=== PATIENT | male | born 1985 | race Caucasian/White ===

== ENCOUNTER 2019-07-16 22:41 | Emergency (ER) | payer MEDICAID ==
[~2019-07-16] VITALS: Ht 172.7 cm; Wt 72.7 kg
[~2019-07-16 22:41] MED LIST: NICO-668 BC; NICO-687 TD; SERT50TA10 PO; TRAZ-251 PO
[2019-07-16 23:38] LABS: BASOPHILS % (AUTO) 0.4 % (0-1); EOSINOPHILS # (AUTO) 0.1 X10'3 (0-0.9); EOSINOPHILS % (AUTO) 1.2 % (0-6); HEMATOCRIT 46.8 % (42.0-52.0); HEMOGLOBIN 16.3 g/dl (14.0-17.9); LYMPHOCYTES # (AUTO) 2.1 X10'3 (1.1-4.8); LYMPHOCYTES % (AUTO) 25.1 % (21-51); MEAN CORPUSCULAR HEMOGLOBIN 32.7 PG (27.0-31.0); MEAN CORPUSCULAR HGB CONC 34.7 g/dL (33.0-36.5); MEAN CORPUSCULAR VOLUME 94.1 FL (78-98); MEAN PLATELET VOLUME 7.6 FL (7.4-10.4); MONOCYTES # (AUTO) 0.6 X10'3 (0-0.9); MONOCYTES % (AUTO) 6.9 % (2-12); NEUTROPHILS # (AUTO) 5.5 X10'3 (1.8-7.7); NEUTROPHILS % (AUTO) 66.4 % (42-75); PLATELET COUNT 292 X10'3 (140-440); RED BLOOD COUNT 4.97 X10'6 (4.70-6.10); WHITE BLOOD COUNT 8.4 X10'3 (4.5-11.0)
[2019-07-16 23:43] LABS: CLARITY,URINE CLEAR (Clear); COLOR,URINE YELLOW (Yellow); GLUCOSE, URINE NEGATIVE (Neg); KETONES,URINE NEGATIVE (Neg); LEUKOCYTE ESTERASE ,URINE NEGATIVE (Neg); NITRITES, URINE NEGATIVE (Neg); OCCULT BLOOD,URINE TRACE-INTACT (Neg); PH,URINE 5.5 (4.8-8.0); PROTEIN,URINE 30 mg/dl (Neg); UROBILINOGEN,URINE 0.2 E.U/dL (0.2-1.0)
[2019-07-16 23:48] LABS: UA COLLECTION TYPE CLN CATCH MIDSTREAM
[2019-07-16 23:49] LABS: ALANINE AMINOTRANSFERASE 46 U/L (12-78); ALBUMIN 4.3 G/DL (3.4-5.0); ALKALINE PHOSPHATASE 80 IU/L (46-116); ANION GAP 8 (8-16); ASPARTATE AMINO TRANSFERASE 25 U/L (10-37); BILIRUBIN,TOTAL 0.2 MG/DL (0.1-1.0); BLOOD UREA NITROGEN 5 MG/DL (7-18); BUN/CREATININE RATIO 6.8 (5.4-32.0); CALCIUM 8.8 MG/DL (8.5-10.1); CHLORIDE 104 MMOL/L (99-107); CREATININE 0.73 MG/DL (0.60-1.10); GLUCOSE 109 MG/DL (70-104); POTASSIUM 3.8 MMOL/L (3.5-5.1); SODIUM 142 MMOL/L (135-145); TOTAL CARBON DIOXIDE 29.9 MMOL/L (24-32); TOTAL PROTEIN 8.5 G/DL (6.4-8.2); eGFR > 90 ML/MIN
[2019-07-16 23:52] LABS: BACTERIA,URINE NONE SEEN /HPF (Neg); RBC,URINE NONE SEEN /HPF (0-2); SQUAMOUS EPITHELIAL CELL,UR NONE SEEN /LPF (FEW); WBC,URINE NONE SEEN /HPF (0-4)
[2019-07-16 23:57] LABS: URINE AMPHETAMINE SCREEN NEGATIVE (Neg); URINE BARBITUATE SCREEN NEGATIVE (Neg); URINE BENZODIAZEPINES SCREEN NEGATIVE (Neg); URINE CANNABINOID SCREEN NEGATIVE (Neg); URINE COCAINE SCREEN NEGATIVE (Neg); URINE METHADONE SCREEN NEGATIVE (Neg); URINE OPIATE SCREEN NEGATIVE (Neg); URINE PHENCYCLIDINE SCREEN NEGATIVE (Neg)
[2019-07-16 23:59] LABS: ACETAMINOPHEN < 2.0 UG/ML (10-30)
[2019-07-17] MEDS ORDERED: NICO-687 TOP (00:03)
[2019-07-17] MEDS ORDERED: SERT-153 PO (00:03)
[2019-07-17] MEDS ORDERED: TRAZ-251 PO (00:03)
[2019-07-17] MEDS ORDERED: SERT100T10 PO (00:05)
--- NOTE | 2019-07-17 00:48 | NUR ---
RECEIVED REPORT FROM LOW BLISS. PT CALM AND COOPERATIVE, SLEEPING IN BED ON RIGHT SIDE WITH NO S/S DISTRESS. RESPIRATIONS EVEN AND UNLABORED. WILL CONTINUE TO MONITOR.
--- NOTE | 2019-07-17 01:00 | NUR ---
EDMD PHAM AT BEDSIDE TO ASSESS PT LACERATIONS. ALL SUPPLIES FOR SUTURES AT NURSES STATION WHEN EDMD AVAILABLE FOR SUTURE PLACEMENT
--- NOTE | 2019-07-17 02:00 | NUR ---
pt appears to be asleep in bed on right side. no signs/symptoms/complaints of distress. respirations even and unlabored. will continue to monitor.
--- NOTE | 2019-07-17 03:29 | NUR ---
pt appears to be asleep in bed lying on right side. no signs/symptoms/complaints of distress. respirations even and unlabored. will continue to monitor.
[2019-07-17] MEDS ORDERED: LIDOcaine 1% W/epiNEPHrine 1:200,000 10ml vial IJ ONE (03:45)
[2019-07-17] MEDS ORDERED: TETanus/Pertussis (Acell)/Diphther VAC/PF (Tdap-Adult) 0.5ml syringe IMVAC ONE (03:45)
--- NOTE | 2019-07-17 03:57 | NUR ---
jannet boyd at pt bedside applying sutures to right forearm. afterwards, antibiotic ointment and simple dressing applied per md order. pt denies any pain or questions/concerns/pain at this time. pt now lying with eyes closed on back. will continue to monitor
--- NOTE | 2019-07-17 05:24 | NUR ---
pt packet faxed to [facility]
--- NOTE | 2019-07-17 05:25 | NUR ---
PER EDMD VERO: ACTIVE NURSING ORDER "Daily wound checks and dressing changes to right arm while in the ED." Dressing applied after sutures applied.
--- NOTE | 2019-07-17 07:05 | NUR ---
Patient sitting up in bed at change of shift. States that he "just want[s] to ". "I have nothing to live for, I have felt this way since I was 10, I watched my dad try to commit suicide and we used to do it together", " I am over living". He states that Dr. Mullen said "If you want to kill yourself, then go do it, leave". Patient asked to use the phone and this request was accomodated. No respiratory distress observed. Will continue to monitor.
--- NOTE | 2019-07-17 08:45 | NUR ---
Dr. Choe is at bedside talking to patient. No distress observed.
--- NOTE | 2019-07-17 08:51 | NUR ---
Avery, [facility] is at bedside evaluating patient.
--- NOTE | 2019-07-17 09:26 | NUR ---
Avery [facility], gave ppw on resources in the community for patient.
--- NOTE | 2019-07-17 11:02 | NUR ---
Spoke to Avery [facility], patient is being held on a 5150 for DTS. Patient's girlfriend, Mari, is at bedside. No distress observed.
--- NOTE | 2019-07-17 12:40 | NUR ---
pt is resting in bed. no concerns at this time
--- NOTE | 2019-07-17 14:06 | NUR ---
Patient is resting in bed peacefully on the right side. No distress observed.
--- NOTE | 2019-07-17 18:30 | NUR ---
Received report from Birgit BLISS. Patient is sitting up in his bed asking for his dinner. Patient is informed dinner will be arriving shortly. Patient is cooperative, friendly and interacts appropriately. No signs of distress noted, RR are even and unlabored, will continue to monitor.
[2019-07-17] MEDS: traZODone 50mg tablet PO SCH (20:19)
--- NOTE | 2019-07-17 20:30 | NUR ---
Patient is in bed resting with eyes closed. No distress is noted, RR even and unlabored will continue to monitor.
--- NOTE | 2019-07-18 | NUR ---
Patient resting in bed with eyes closed, RR are even and unlabored, no distress noted at this time. Will continue to monitor.
--- NOTE | 2019-07-18 02:08 | NUR ---
Patient resting in bed with eyes closed, RR are even and unlabored, no distress noted at this time. Will continue to monitor.
--- NOTE | 2019-07-18 04:36 | NUR ---
Patient resting in bed with eyes closed, RR are even and unlabored, no distress noted at this time. Will continue to monitor.
[2019-07-18] MEDS: nicotine 21mg patch - 24 hr TD SCH (08:00)
[2019-07-18] MEDS: sertraline 50mg tablet PO SCH ×2 (08:00→08:50)
--- NOTE | 2019-07-18 09:52 | NUR ---
Pt's dressing was coming off his right forearm. Dressing removed. 3 wounds with sutures intact. Wounds appear to be healing. Pt would like to leave off dressigs so wounds can dry out and heal. GF at bedside.
--- NOTE | 2019-07-18 13:01 | NUR ---
relieving RN for break, pt is resting quietly on bed,
[2019-07-18] MEDS: traZODone 50mg tablet PO SCH (20:03)
[2019-07-19 05:45] VITALS: BP 100/6
--- NOTE | 2019-07-19 06:26 | NUR ---
pt resting calm and quiet in bed.
[2019-07-19] MEDS: sertraline 50mg tablet PO SCH (08:00)
[2019-07-19] MEDS: nicotine 21mg patch - 24 hr TD SCH (08:00)
--- NOTE | 2019-07-19 08:00 | NUR ---
resting quietly in bed.
--- NOTE | 2019-07-19 09:00 | NUR ---
Pt refused his AM Zoloft and Nicotine patch. States Zoloft doesn't do anything for him and pt has quite smoking and doesn't have an urge to smoke therefore not needing the nicotine patch.
[2019-07-19] MEDS ORDERED: LORazepam 1 MG tablet PO ONE (09:45)
--- NOTE | 2019-07-19 10:21 | NUR ---
pt starting to get antsy and agitated. Stating he's wanting to leave and be discharged. Pt states he's feeling stir crazy, he's used to walkign 10mil a day and "can't stand being in this place". Asked pt if he wanted something to help with agitation and he stated he would. Dr. Chow aware of pts agitation and ordered Ativan 1mg. Med given. Called upstairs to and they will accept pt today.
--- NOTE | 2019-07-19 10:36 | NUR ---
primary RN was sent on break. pt resting comfortably on his back, no signs of respiratory distress.
--- NOTE | 2019-07-19 10:51 | NUR ---
s/p Ativan administration pt is feeling more calm and "mellow". pt visually appears to be more calm. Notified pt he is to be transferred upstairs to [facility] at some point today and pt received news well.
--- NOTE | 2019-07-19 11:46 | NUR ---
pt transferred up to [facility]. Calm and cooperative.
== END 2019-07-19 11:49 ==
LOC: ER 22:42
DX: S51.811A Laceration without foreign body of right forearm, initial encounter (principal); T14.91XA Suicide attempt, initial encounter; F10.920 Alcohol use, unspecified with intoxication, uncomplicated; F31.9 Bipolar disorder, unspecified; X78.8XXA Intentional self-harm by other sharp object, initial encounter; Y93.89 Activity, other specified; Y92.89 Other specified places as the place of occurrence of the external cause; Y99.8 Other external cause status; Y90.9 Presence of alcohol in blood, level not specified
CPT/HCPCS: 12004; 36415; 80053; 80305; 80320; 80329; 81001; 84443; 85025; 90471; 90715; 99285

== ENCOUNTER 2019-07-19 10:44 | Inpatient (IN) | payer MEDICAID ==
[~2019-07-19] VITALS: Ht 167.6 cm; Wt 73.8 kg
[~2019-07-19 10:44] MED LIST changes: -NICO-668 BC; -NICO-687 TD; +NICO-687 TOP; +SERT100T10 PO; -SERT50TA10 PO
[2019-07-19] MEDS ORDERED: acetaminophen 325mg tablet PO PRN ×2 (11:05)
[2019-07-19] MEDS ORDERED: magnesium hydroxide 30ml (MOM) UD suspension PO PRN (11:05)
[2019-07-19] MEDS ORDERED: NICOTINE POLACRILEX 2 MG LOZENGE BC PRN (11:05)
[2019-07-19] MEDS ORDERED: mag hydrox/Alum hydrox/simeth 30ml oral suspension PO PRN (11:05)
[2019-07-19] MEDS ORDERED: traZODone 50mg tablet PO PRN (11:05)
[2019-07-19] MEDS ORDERED: hydrOXYzine 25 MG tablet PO PRN (11:05)
[2019-07-19] MEDS ORDERED: loperamide 2mg capsule PO PRN (11:05)
--- NOTE | 2019-07-19 13:22 | NUR ---
Admission note: Pt admitted to [place] [facility] on 5150 at 1140 for DTS. Pt was just discharged from here on Jun 23. Pt arrives with superficial cuts to both arms. Pt is hyperverbal and tangential. Pt denied SI to the county plaster model and mold maker but his girlfriend states he told her he would kill himself as soon as he leaves the ER. Pt planned to cut himself until he "Bled out". Pt has a history of Bipolar and depression. ETOH .16 upon arrival.
[2019-07-19 20:00] VITALS: BP 113/68
[2019-07-19] MEDS: traZODone 50mg tablet PO SCH (20:38)
--- NOTE | 2019-07-20 05:25 | NUR ---
Nursing Progress Note: Legal hold:515 Client on involuntary status for DTS. Report received from nurse Gagandeep RN with use of SBAR. Why are they here: Pt admitted to [place] for [facility] on 515 at 1140 for DTS. Pt was just discharged from here on Jun 23. Pt arrives with superficial cuts to both arms. Pt is hyperverbal and tangential. Pt denied SI to the county hydraulic strainer operator but his girlfriend states he told her he would kill himself as soon as he leaves the ER. Pt planned to cut himself until he "Bled out". Pt has a history of Bipolar and depression. ETOH .16 upon arrival. Assessment What has happened this shift: Patient is watching television and socializing with other patients following shift change. Patient is well oriented and cooperative with staff. This patient sits with this commercial insurance underwriter in the community room. He denies S/I, H/I, or any hallucinations at this time. The patient states some anxiety, "I get angry now instead of depressed." Patient states he hopes to get on SSI so he can afford basic lodging, "like a pop up tent in the back of a pickup truck." The patient describes not seeing eye to eye with his psychiatrist. He states he is happy to work with Mahamed TORRES. Patient also describes problems when people yell at him, "I cut myself to relieve the pain so I don't hurt others. My father taught me that, he was an alcoholic with mental health problems." This patient is medication compliant. S/I, H/I: Denies. A/VH:Denies. Sleep:Will tally at 0500 hours. ADL's:Independant. Group attendance:N/A on nights. Were meds taken:Patient is medication compliant. Any med S/E:Trazadone Mental Status Exam Appearance: Clean, well dressed, and well groomed young man. Eye contact: Direct Behavior: Social with others, cooperative with staff. Speech: Normal voice, rate, rhythm and tone. Mood: Decribes anger but does not exhibit. Affect: Flat. Thought process: Linear. Thought Content: Get better, get discharged, and get a pop up tent to live in. Cognition: Good. Insight: Poor. Judgment:Poor. Interventions PRN's used:None. Therapeutic interventions: 1:1 Therapeutic assessment, ensured contract for safety, redirection as needed, Medication administration/education/monitoring, active listenint, Q15 minute safety checks. Restraints/seclusion/emergency medication:None. Justification of Continued Inpatient Treatment:Patient is on a hold for DTS. Patient needs medication adjustment and monitoring in a safe therapeutic environment until stable.
[2019-07-20 07:51] LABS: CHOL/HDL RATIO 6.5 (0.00-4.99); CHOLESTEROL 227 MG/DL (0-200); HDL CHOLESTEROL 35 MG/DL (35-60); LDL CHOLESTEROL 140 MG/DL (50-100); TRIGLYCERIDES 204 MG/DL (20-135)
[2019-07-20 08:00] VITALS: BP 112/64
[2019-07-20] MEDS ORDERED: nicotine 21mg patch - 24 hr TD SCH ×2 (08:00)
[2019-07-20] MEDS ORDERED: sertraline 50mg tablet PO SCH (08:00)
[2019-07-20] MEDS: divalproex sod 250mg ER (24-hour) tablet PO SCH ×2 (08:04→20:33)
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
[2019-07-20 20:00] VITALS: BP 133/81
[2019-07-20] MEDS: traZODone 50mg tablet PO SCH (20:33)
--- NOTE | 2019-07-21 04:01 | NUR ---
Nursing Progress Note: Legal hold:5149 Client on involuntary status for DTS. Report received from nurse Gagandeep RN with use of SBAR. Why are they here: Pt admitted to [place] for [facility] on 5149 at 1140 for DTS. Pt was just discharged from here on Jun 23. Pt arrives with superficial cuts to both arms. Pt is hyperverbal and tangential. Pt denied SI to the county research scientist but his girlfriend states he told her he would kill himself as soon as he leaves the ER. Pt planned to cut himself until he "Bled out". Pt has a history of Bipolar and depression. ETOH .16 upon arrival. Assessment What has happened this shift: This patient is watching the Superbowl following shift change. He is laughing and upbeat. His thoughts are linear. Patient talks with some agitation about him being here because Dr. Mullen angered him and kicked him out of his office. This ad writer advised patient that he would not be discharged from [facility] without a need for a new psychiatrist being addressed. The patient states he had some depression earlier but watching the Super Bowl was fun and his team won so he is feeling better. Patient is cooperative with staff and medication compliant. S/I, H/I: Denies. A/VH:Denies. Sleep:Will tally at 0500 hours. ADL's:Independent. Group attendance:N/A on nights. Were meds taken:Patient is medication compliant. Any med S/E:Trazadone Mental Status Exam Appearance: Clean, well dressed, and well groomed young man. Eye contact: Direct Behavior: Social with others, cooperative with staff. Speech: Normal voice, rate, rhythm and tone. Mood: Decribes anger but does not exhibit. Affect: Flat. Thought process: Linear. Thought Content: Get better, get discharged, and get a pop up tent to live in. Cognition: Good. Insight: Poor. Judgment:Poor. Interventions PRN's used:None. Therapeutic interventions: 1:1 Therapeutic assessment, ensured contract for safety, redirection as needed, Medication administration/education/monitoring, active listenint, Q15 minute safety checks. Restraints/seclusion/emergency medication:None. Justification of Continued Inpatient Treatment:Patient is on a hold for DTS. Patient needs medication adjustment and monitoring in a safe therapeutic environment until stable.
[2019-07-21 08:12] VITALS: BP 104/60
[2019-07-21] MEDS: divalproex sod 250mg ER (24-hour) tablet PO SCH ×2 (08:16→20:00)
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
--- NOTE | 2019-07-21 13:49 | NUR ---
REFERRAL TO [facility] Completed and faxed referral to [facility]. Tony had attempted to schedule an appt and was reportedly told he had to come in and complete paperwork. He reported he will walk in at [facility] upon discharge to set up an appt. BRAYDEN Iglesias
--- NOTE | 2019-07-21 14:48 | NUR ---
Nursing Progress Note: Legal hold: 5149 Client on involuntary status for DTS. Report received from RN with use of SBAR. Why are they here: Pt admitted to [place] for [facility] on 5149 at 1140 for DTS. Pt was just discharged from here on Jun 23. Pt arrives with superficial cuts to both arms as well as 3 sutured lacerations on his right forearm. Pt is hyperverbal and tangential. Pt denied SI to the county spacecraft systems engineer but his girlfriend states he told her he would kill himself as soon as he leaves the ER. Pt planned to cut himself until he "Bled out". Pt has a history of Bipolar and depression. ETOH .16 upon arrival. Assessment Received Pt in bed sleeping w/o distress at beginning of shift. Pt awoke and ate breakfast and all meals in community room. Pt took AM meds w/o concern. He expressed anger towards [facility] Dr who would not give him meds and suggested other modalities. Pt stated, I guess he wanted me to go and self medicate and cut myself. Pt not open to the idea that he may have reacted impulsively or that he could benefit from a job or therapies. Pt stated derogatory things about the [facility] and c/o the rules there. He made attempts to get [facility] and spoke with GF on phone about helping with potential living arrangements. Pt has an entitled and proud theme in his conversations. He is pleasant and cooperative and will engage with staff and others. Pt does not endorse or appear willing to engage in forms of coping with anger and fear, other than cutting. S/I, H/I: Pt denies. A/VH: Pt denies. Sleep: Not this shift ADL's: Independent Group attendance: No groups today. Were meds taken: Yes Any med S/E: None noted or reported. Mental Status Exam Appearance: Neat, clean, hair pulled back in a ponytail with shaved sides. Eye contact: Good Behavior: Cooperative, watches TV in the rec room. Speech: Clear, audible, becomes angry when ruminating about past wrongs people have done him. Mood: Anxious, angry, yet cooperative. Affect: Full range Thought process: Perseverative, ruminates. Thought Content: Angry at the world, unable to let go of past wrongs people have done him, victim mentality. Cognition: A/O X 4 Insight: Poor Judgment: Poor Interventions PRN's used: None. Therapeutic interventions: 1:1 assessment, behavior monitoring, ensured contract for safety, re- direction, medication administration/education/monitoring, active listening, Q15 minute safety checks. Restraints/seclusion/emergency medication:None. Justification of Continued Inpatient Treatment:Patient is on a hold for DTS. Patient needs medication adjustment and monitoring in a safe therapeutic environment until stable to prevent self-harm and readmission.
[2019-07-21] MEDS: traZODone 50mg tablet PO SCH (20:00)
[2019-07-21 20:14] VITALS: BP 129/77
--- NOTE | 2019-07-21 22:55 | NUR ---
Nursing Progress Note: Legal hold: 5149 Client on involuntary status for DTS. Report received from IZAIAH Donis with use of SBAR. Why are they here: Pt admitted to [facility] for [facility] on 5149 at 1140 for DTS. Pt was just discharged from here on Jun 23. Pt arrives with superficial cuts to both arms as well as 3 sutured lacerations on his right forearm. Pt is hyperverbal and tangential. Pt denied SI to the county septic tank cleaner but his girlfriend states he told her he would kill himself as soon as he leaves the ER. Pt planned to cut himself until he "Bled out". Pt has a history of Bipolar and depression. ETOH .16 upon arrival. Assessment Pt was sitting in rec room watching tv with another pt at change of shift. Pt was dressed in clean clothes and appeared to be clean himself. pt was pleasant and cooperative for 1:1 but did not want to divulge any details or discuss reasons for being here. pt asked for hs meds at 1999 to go to bed early. pt denied si/hi, a/vh. pt was seen interacting and conversing with other pt's appropriately. S/I, H/I: Pt denies. A/VH: Pt denies. Sleep: Not this shift ADL's: Independent Group attendance: No groups today. Were meds taken: Yes Any med S/E: None noted or reported. Mental Status Exam Appearance: Neat, clean Eye contact: Good Behavior: Cooperative, friendly Speech: Clear, audible Affect: friendly Thought process: linear Thought Content: "I'm fine" Cognition: A/O X 4 Insight: Poor Judgment: Poor Interventions PRN's used: None. Therapeutic interventions: 1:1 assessment, behavior monitoring, ensured contract for safety, re- direction, medication administration/education/monitoring, active listening, Q15 minute safety checks. Restraints/seclusion/emergency medication:None. Justification of Continued Inpatient Treatment:Patient is on a hold for DTS. Patient needs medication adjustment and monitoring in a safe therapeutic environment until stable to prevent self-harm and readmission.
[2019-07-22] MEDS ORDERED: NICO-668 BC (08:09)
[2019-07-22] MEDS ORDERED: DIVA250T8 PO (08:09)
[2019-07-22] MEDS ORDERED: TRAZ-251 PO (08:09)
[2019-07-22] MEDS: divalproex sod 250mg ER (24-hour) tablet PO SCH (08:41)
[2019-07-22 08:46] VITALS: BP 109/53
--- NOTE | 2019-07-22 10:05 | NUR ---
DISCHARGE NOTE During the signing of discharge paperwork pt began yelling because he was "not being discharged with an anxiolytic." He yelled, "what good have you guys done for me I need help with anxiety, don't ask me to do anything for you if you guys cant' do anything for me." He then refused pictures of his wounds, stating, "no, what have you done for me?" Pt also upset because he was being discharged with a prescription for nicotine lozenges stating, "I quit smoking three weeks ago, I told them that in the ED and I told Mahamed that how stupid are you people?" Pt's personal items inventoried Kendall GOMEZ and pt signed off personal property. Pt declined smoking cessation resources, "I don't smoke." Pt left here with his GF to go to her place or find a hotel. He will follow up with [facility].
== END 2019-07-22 10:05 | disposition home or self-care (01) | DRG 753 ==
LOC: ADULT MH 10:44
PROVIDERS: ADMIT Psychiatry & Neurology Psychiatry; ATTEND Psychiatry & Neurology Psychiatry
DX: F39 Unspecified mood [affective] disorder (principal); F43.12 Post-traumatic stress disorder, chronic; F60.3 Borderline personality disorder; G89.29 Other chronic pain; M54.9 Dorsalgia, unspecified; M54.5 Low back pain; Z87.891 Personal history of nicotine dependence; Z81.8 Family history of other mental and behavioral disorders; Z79.899 Other long term (current) drug therapy
CPT/HCPCS: 36415; 80061; 83036; 87081; 99285; Z7610

== ENCOUNTER 2019-08-10 02:44 | Emergency (ER) | payer MEDICAID ==
[~2019-08-10] VITALS: Ht 172.7 cm; Wt 120.0 kg
[~2019-08-10 02:44] MED LIST changes: +DIVA250T8 PO; +NICO-668 BC; -SERT100T10 PO
[2019-08-10 02:48] VITALS: BP 119/72
[2019-08-10] MEDS ORDERED: LIDOcaine 1% W/epiNEPHrine 1:200,000 10ml vial IJ ONE (03:15)
[2019-08-10 03:35] LABS: CLARITY,URINE CLEAR (Clear); COLOR,URINE YELLOW (Yellow); GLUCOSE, URINE NEGATIVE (Neg); KETONES,URINE NEGATIVE (Neg); LEUKOCYTE ESTERASE ,URINE NEGATIVE (Neg); NITRITES, URINE NEGATIVE (Neg); OCCULT BLOOD,URINE TRACE-INTACT (Neg); PH,URINE 5.5 (4.8-8.0); PROTEIN,URINE NEGATIVE (Neg); UROBILINOGEN,URINE 0.2 E.U/dL (0.2-1.0)
[2019-08-10 03:43] LABS: UA COLLECTION TYPE URINAL
[2019-08-10 03:50] LABS: URINE AMPHETAMINE SCREEN NEGATIVE (Neg); URINE BARBITUATE SCREEN NEGATIVE (Neg); URINE BENZODIAZEPINES SCREEN NEGATIVE (Neg); URINE CANNABINOID SCREEN NEGATIVE (Neg); URINE COCAINE SCREEN NEGATIVE (Neg); URINE METHADONE SCREEN NEGATIVE (Neg); URINE OPIATE SCREEN NEGATIVE (Neg); URINE PHENCYCLIDINE SCREEN NEGATIVE (Neg)
[2019-08-10 03:54] LABS: BACTERIA,URINE NONE SEEN /HPF (Neg); MUCUS STRANDS NONE SEEN /LPF (Neg); RBC,URINE 0-2 /HPF (0-2); SQUAMOUS EPITHELIAL CELL,UR FEW /LPF (FEW); WBC,URINE NONE SEEN /HPF (0-4)
[2019-08-10 04:01] LABS: BASOPHILS % (AUTO) 0.3 % (0-1); EOSINOPHILS # (AUTO) 0.3 X10'3 (0-0.9); EOSINOPHILS % (AUTO) 2.8 % (0-6); HEMATOCRIT 46.7 % (42.0-52.0); LYMPHOCYTES # (AUTO) 2.6 X10'3 (1.1-4.8); LYMPHOCYTES % (AUTO) 24.2 % (21-51); MEAN CORPUSCULAR HEMOGLOBIN 32.3 PG (27.0-31.0); MEAN CORPUSCULAR HGB CONC 34.1 g/dL (33.0-36.5); MEAN CORPUSCULAR VOLUME 94.7 FL (78-98); MEAN PLATELET VOLUME 7.6 FL (7.4-10.4); MONOCYTES # (AUTO) 0.7 X10'3 (0-0.9); NEUTROPHILS % (AUTO) 65.7 % (42-75); PLATELET COUNT 278 X10'3 (140-440); RED BLOOD COUNT 4.93 X10'6 (4.70-6.10); RED CELL DISTRIBUTION WIDTH 13.5 % (11.5-14.5); WHITE BLOOD COUNT 10.6 X10'3 (4.5-11.0)
[2019-08-10 04:13] LABS: ALANINE AMINOTRANSFERASE 27 U/L (12-78); ALBUMIN 4.3 G/DL (3.4-5.0); ALKALINE PHOSPHATASE 70 IU/L (46-116); ANION GAP 11 (8-16); ASPARTATE AMINO TRANSFERASE 25 U/L (10-37); BILIRUBIN,TOTAL 0.2 MG/DL (0.1-1.0); BLOOD UREA NITROGEN 11 MG/DL (7-18); BUN/CREATININE RATIO 16.2 (5.4-32.0); CALCIUM 8.9 MG/DL (8.5-10.1); CHLORIDE 105 MMOL/L (99-107); CREATININE 0.68 MG/DL (0.60-1.10); GLUCOSE 102 MG/DL (70-104); POTASSIUM 3.8 MMOL/L (3.5-5.1); SODIUM 143 MMOL/L (135-145); TOTAL CARBON DIOXIDE 26.6 MMOL/L (24-32); TOTAL PROTEIN 8.5 G/DL (6.4-8.2); eGFR > 90 ML/MIN
--- NOTE | 2019-08-10 07:00 | NUR ---
PT LAYING ON RIGHT SIDE WITH EYES CLOSED, EFFORTLESS RESPIRATIONS OBSERVED.
--- NOTE | 2019-08-10 07:56 | NUR ---
PACKET FAXED TO [facility]
--- NOTE | 2019-08-10 09:35 | NUR ---
PT SITTING AT BED EATING BREAKFAST TRAY.
--- NOTE | 2019-08-10 09:50 | NUR ---
PT AMBULATED TO ROOM 25, PT REMAINS CALM AND COOPERATIVE
[2019-08-10] MEDS ORDERED: LITH600C PO (11:21)
[2019-08-10] MEDS ORDERED: TRAZ-256 PO (11:23)
--- NOTE | 2019-08-10 11:45 | NUR ---
Assumed care of pt while primary nurse on break. Pt resting in [facility]. Sitter nearby. Will continue to monitor.
[2019-08-10] MEDS ORDERED: traZODone 50mg tablet PO SCH (21:00)
[2019-08-11] MEDS ORDERED: nicotine 21mg patch - 24 hr TD SCH (08:00)
== END 2019-08-10 17:48 | disposition home or self-care (01) ==
LOC: ER 02:45
DX: S51.811A Laceration without foreign body of right forearm, initial encounter (principal); F31.9 Bipolar disorder, unspecified; F17.200 Nicotine dependence, unspecified, uncomplicated; Z59.0 Homelessness; Z79.899 Other long term (current) drug therapy; X78.8XXA Intentional self-harm by other sharp object, initial encounter; Y93.89 Activity, other specified; Y92.89 Other specified places as the place of occurrence of the external cause; Y99.8 Other external cause status
CPT/HCPCS: 36415; 80053; 80178; 80305; 80320; 81001; 85025; 99283